=== PATIENT | female | born 1950 | race Caucasian/White ===

== ENCOUNTER 2018-08-18 17:22 | Emergency (ER) | payer MEDICARE, BC ==
[2018-08-18 18:21] VITALS: BP 154/76
--- NOTE | 2018-08-18 18:34 | UC ---
Respiratory Complaint HPI - HPI Summary HPI Summary: Started w/ 6 days of cough, nasal congestion. Cough keeps her up at night. Used to use inhaler when she got sick, hasn't in many months. denies sick contacts. nothing makes it worse. nothing makes it better. has been drinking cold flu tea. - History of Current Complaint Chief Complaint: UCRespiratory Stated Complaint: COUGH,CONGESTION Time Seen by Provider: 08/18/18 18:22 Hx Obtained From: Patient Hx Last Menstrual Period: n/a Pain Intensity: 0 - Allergies/Home Medications Allergies/Adverse Reactions: Allergies Allergy/AdvReac Type Severity Reaction Status Date / Time MS Bee Venom [Bee Venom] Allergy Swelling Verified 07/29/16 19:00 Of Face,Lips,& Throat MS Codeine [Codeine] AdvReac Vomiting Verified 07/29/16 19:00 MS Erythromycin AdvReac Diarrhea Verified 07/29/16 19:00 [Erythromycin] pollen Allergy sneezing, Uncoded 07/29/16 19:00 nasal congestion Home Medications: Home Medications Sertraline* [Zoloft*] 1 tab QAM 08/18/18 [History Confirmed 08/18/18] PMH/Surg Hx/FS Hx/Imm Hx Previously Healthy: Yes - Surgical History Surgical History: Yes Surgery Procedure, Year, and Place: Appendectomy. Tonsillectomy. Bilateral Oopherectomy. C4-C5 laser procedure to clear bone spurs - Family History Known Family History: Positive: Hypertension - Social History Alcohol Use: None Substance Use Type: None Smoking Status (MU): Never Smoked Tobacco - Immunization History Most Recent Influenza Vaccination: [id number] Review of Systems All Other Systems Reviewed And Are Negative: Yes Constitutional: Positive: Chills. Negative: Fever, Fatigue Skin: Negative: Rash ENT: Positive: Sinus Congestion, Sinus Pain/Tenderness. Negative: Sore Throat, Ear Ache Respiratory: Positive: Cough. Negative: Shortness Of Breath - dry Cardiovascular: Positive: Negative Gastrointestinal: Negative: Vomiting, Diarrhea Motor: Negative: Weakness Musculoskeletal: Negative: Myalgia Neurological: Negative: Headache Physical Exam Triage Information Reviewed: Yes Appearance: Well-Appearing Vital Signs: Initial Vital Signs Temp 98.3 F 08/18/18 18:18 Pulse 90 08/18/18 18:18 Resp 16 08/18/18 18:18 BP 154/76 08/18/18 18:18 Pulse Ox 99 08/18/18 18:18 Vital Signs Reviewed: Yes Eyes: Positive: Conjunctiva Clear ENT: Positive: Pharynx normal, TMs normal, Uvula midline. Negative: Tonsillar swelling, Tonsillar exudate, Sinus tenderness Neck: Positive: Supple, Nontender, No Lymphadenopathy Respiratory Exam: Normal Cardiovascular Exam: Normal Neurological: Positive: Alert Skin: Negative: Rashes UC Diagnostic Evaluation - Laboratory O2 Sat by Pulse Oximetry: 99 Respiratory Course/Dx - Course Course Of Treatment: Viral bronchitis dx'd after 6 days of cough. AFebrile and clear lungs today. Will restart her albuterol inhaler and symptomatic tx for cough. She wanted antibx sent but she does not want to pick it up unless cough worsens. I will oblige this request. - Differential Dx/Diagnosis Differential Diagnosis/HQI/PQRI: Asthma, Bronchitis, Lower Resp Infection, Sinusitis Provider Diagnosis: Bronchitis Discharge - Sign-Out/Discharge Documenting (check all that apply): Patient Departure All imaging exams completed and their final reports reviewed: No Studies - Discharge Plan Condition: Good Disposition: HOME Prescriptions: Albuterol HFA INHALER* [Ventolin HFA Inhaler*] 1 - 2 puff INH Q6H PRN 30 Days # 1 mdi PRN Reason: Cough Azithromycin TAB* [Zithromax TAB (Z-LONG) 250 mg #6 tabs] 2 tab PO .TODAY, THEN 1 DAILY #1 long Benzonatate CAP* [Tessalon 100 MG CAP*] 100 mg PO TID 3 Days #9 cap Patient Education Materials: Acute Bronchitis (ED) Referrals: Scottie Lezama MD [Primary Care Provider] - Additional Instructions: Follow up with your pcp if not improving. - Billing Disposition and Condition Condition: GOOD Disposition: Home
== END 2018-08-18 18:40 | disposition home or self-care (01) ==
LOC: UCCORT 17:22
DX: J40 Bronchitis, not specified as acute or chronic (principal); Z88.5 Allergy status to narcotic agent; Z88.1 Allergy status to other antibiotic agents
CPT/HCPCS: 99212; G0463

== ENCOUNTER 2019-01-24 11:13 | Emergency (ER) | payer MEDICARE, BC ==
[2019-01-24 12:26] VITALS: BP 135/70
--- NOTE | 2019-01-24 12:35 | UC ---
Throat Pain/Nasal Nehemiah HPI - HPI Summary HPI Summary: 68 y/o female presents to the urgent care c/o Sinus pain, head pressure, yellow nasal drainage, drainage causes cough especially at night for the past week. pt reports Hx of sinusitis and bronchitis in the past. She has taken Advil PO to alleviate symptoms. Pt denies wheezing, SOB, chest pain, dizziness, abdominal pain, N/V/D. - History of Current Complaint Chief Complaint: UCRespiratory Stated Complaint: SINUS PRESSURE,ST Time Seen by Provider: 01/24/19 12:34 Hx Obtained From: Patient Hx Last Menstrual Period: n/a Onset/Duration: Gradual Onset, Lasting Weeks - 1 week, Still Present, Worse Since - 2 days w/ green nasal discharge Severity: Moderate Pain Intensity: 4 Pain Scale Used: 0-10 Numeric Cough: Productive - yellowish phlegm Associated Signs & Symptoms: Positive: Sinus Discomfort, Nasal Discharge - green. Negative: Wheezing, Hoarseness, Fever, Rash - Epiglottits Risk Factors Epiglottis Risk Factors: Negative - Allergies/Home Medications Allergies/Adverse Reactions: Allergies Allergy/AdvReac Type Severity Reaction Status Date / Time bee venom protein (honey bee) Allergy Swelling Verified 01/24/19 12:45 Of Face,Lips,& Throat codeine AdvReac Vomiting Verified 01/24/19 12:44 erythromycin base AdvReac Diarrhea Verified 01/24/19 12:44 pollen Allergy sneezing, Uncoded 01/24/19 12:26 nasal congestion Home Medications: Home Medications Ibuprofen TAB* [Advil TAB*] 400 mg PO DAILY PRN 01/24/19 [History Confirmed 07/04] PMH/Surg Hx/FS Hx/Imm Hx Previously Healthy: Yes Endocrine History: Dyslipidemia GI/ History: Gastroesophageal Reflux - Surgical History Surgical History: Yes Surgery Procedure, Year, and Place: Appendectomy. Tonsillectomy. Bilateral Oopherectomy. C4-C5 laser procedure to clear bone spurs - Family History Known Family History: Positive: Hypertension, Diabetes - Social History Occupation: Retired Lives: With Family Alcohol Use: None Substance Use Type: None Smoking Status (MU): Never Smoked Tobacco - Immunization History Most Recent Influenza Vaccination: [id number] Review of Systems All Other Systems Reviewed And Are Negative: Yes Constitutional: Positive: Negative Skin: Positive: Negative Eyes: Positive: Negative ENT: Positive: Nasal Discharge - green, Sinus Congestion, Sinus Pain/Tenderness , Other - moderate yellowish PND Respiratory: Positive: Cough - productive Cardiovascular: Positive: Negative Gastrointestinal: Positive: Negative Genitourinary: Positive: Negative Motor: Positive: Negative Neurovascular: Positive: Negative Musculoskeletal: Positive: Negative Neurological: Positive: Negative Psychological: Positive: Negative Is Patient Immunocompromised?: No Physical Exam - Summary Physical Exam Summary: Vitals: reviewed General: Well developed, well-nourished male patient with NAD. Head and face: Normocephalic and atraumatic, Positive tenderness over the frontal and maxillary sinuses.. Eyes: PERRLA, EOMI x 2. Normal conjunctiva. No eye discharge. ENT: Ears and TM with normal limits. Nose: edematous and erythematous nasal mucosa with with yellowish discharge and erythematous mucosa. Pharynx with erythema, no exudate. Positive yellowish PND Neck: Supple, no JVD, no carotid bruits and no lymphadenopathy. Lungs: clear, no rales, no rhonchi, no wheezes. CVS: RRR, S1 and S2 present no murmurs or gallops appreciated. Abdomen: soft nontender with positive bowel sounds. Extremities: no edema noted. Neuro: WNL. Skin: warm and dry Triage Information Reviewed: Yes Vital Signs: Initial Vital Signs Temp 97.8 F 01/24/19 12:15 Pulse 64 01/24/19 12:15 Resp 20 01/24/19 12:15 BP 135/70 01/24/19 12:15 Pulse Ox 100 01/24/19 12:15 Throat Pain/Nasal Course/Dx - Course Course Of Treatment: 68 y/o female presents to the urgent care c/o Sinus pain, head pressure, yellow nasal drainage, drainage causes cough especially at night for the past week. pt reports Hx of sinusitis and bronchitis in the past. She has taken Advil PO to alleviate symptoms. Pt denies wheezing, SOB, chest pain, dizziness, abdominal pain, N/V/D. Hx obtained. Pt w/ bacterial sinusitis on examination. Pt with 1 week of symptoms getting worse. Pt Rx Amoxicillin PO and flonase nasal spray. Tessalon PO for cough. Discharge instructions explained to Pt. Pt requested albuterol inhaler refill. Advised to Return to the clinic or PCP if symptoms do not improve.Pt understood and agreed with plan of care. - Differential Dx/Diagnosis Differential Diagnosis/HQI/PQRI: Laryngitis, Mononucleosis, Sinusitis, Tonsillitis, URI, Other - bronchitis Provider Diagnosis: Acute bacterial sinusitis, Cough Discharge - Sign-Out/Discharge Documenting (check all that apply): Patient Departure - D/C home All imaging exams completed and their final reports reviewed: No Studies - Discharge Plan Condition: Stable Disposition: HOME Prescriptions: Albuterol HFA INHALER* [Ventolin HFA Inhaler*] 1 - 2 puff INH Q6H PRN #1 mdi PRN Reason: Cough Amoxicillin PO (*) [Amoxicillin 500 MG CAP*] 500 mg PO Q12H #20 cap Benzonatate CAP* [Tessalon 100 MG CAP*] 100 mg PO TID PRN #21 cap PRN Reason: Cough Fluticasone NASAL SPRAY 50MCG* [Flonase NASAL SPRAY 50MCG*] 2 spray BOTH NARES DAILY #1 btl Patient Education Materials: Sinusitis (ED) Referrals: Scottie Lezama MD [Primary Care Provider] - 3 Days Additional Instructions: 1- Please increase fluid intake and rest. take full course of antibiotic to avoid resistance. Take yogurts w/ probiotics or Culturelle to protect your GI system 2-Use Flonase as directed to help drain fluid. Also buy saline drops to clear sinuses 3-Take Tessalon tabs PO to alleviates cough. 4-Please f/u w/ your PCP in 3 days if symptoms do not improve for further management and treatment - Billing Disposition and Condition Condition: STABLE Disposition: Home
== END 2019-01-24 12:58 | disposition home or self-care (01) ==
LOC: UCCORT 11:13
DX: J01.90 Acute sinusitis, unspecified (principal); B96.89 Other specified bacterial agents as the cause of diseases classified elsewhere; R05 Cough
CPT/HCPCS: 99212; G0463